=== PATIENT | female | born 1995 | race Caucasian/White ===

== ENCOUNTER 2016-09-21 02:10 | Emergency (ER) | payer MEDICAID ==
[2016-09-21 02:24] VITALS: BP 102/61
--- NOTE | 2016-09-21 02:39 | EDM.PDOC ---
ED HPI GENERAL MEDICAL PROBLEM - General Chief Complaint: General Stated Complaint: WEAK,HOT/COLD [id number] Time Seen by Provider: 09/21/16 02:30 Source of Information: Reports: Patient - History of Present Illness INITIAL COMMENTS - FREE TEXT/NARRATIVE: c/o being constipated, took laxative earlier and now has diarrhea and just doent feel well. No fever, felt chilled, no urinary sx. nauseated earlier gone now. 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: Other Medication(s) Generalized Pain Score (Numeric/FACES): 5 - Related Data Allergies Allergy/AdvReac Type Severity Reaction Status Date / Time amoxicillin [Amoxicillin] Allergy Rash Verified 09/21/16 02:14 Home Meds: Home Meds LORazepam [Ativan] 0.5 mg PO 06/21/13 [History] lamoTRIgine [Lamictal] 250 mg PO BID 06/21/13 [History] levETIRAcetam [Levetiracetam] 1,500 mg PO BID 06/21/13 [History] Melatonin 10 mg PO BEDTIME 09/19/13 [History] Divalproex Sodium [Depakote] 3 tab PO BID 09/21/16 [History] Zonisamide 1 tab PO DAILY 09/21/16 [History] Past Medical History Neurological History: Reports: Seizure Psychiatric History: Reports: Anxiety, Depression, Emotional Problems Social & Family History - Tobacco Use Smoking Status *Q: Unknown Ever Smoked - Caffeine Use Caffeine Use: Reports: None - Alcohol Use Days Per Week of Alcohol Use: 0 - Recreational Drug Use Recreational Drug Use: No ED ROS GENERAL - Review of Systems Review Of Systems: See Below Constitutional: Reports: Chills HEENT: Reports: No Symptoms Respiratory: Reports: No Symptoms Cardiovascular: Reports: No Symptoms GI/Abdominal: Reports: Constipation, Nausea (resolved) Musculoskeletal: Reports: No Symptoms Skin: Reports: No Symptoms Neurological: Reports: No Symptoms Psychiatric: Reports: Anxiety ED EXAM, GENERAL - Physical Exam Exam: See Below Exam Limited By: No Limitations General Appearance: Alert, No Apparent Distress, Anxious, Thin Eye Exam: Bilateral Eye: EOMI Ears: Normal External Exam Nose: Normal Inspection Throat/Mouth: Normal Inspection Head: Atraumatic, Normocephalic Neck: Normal Inspection, Full Range of Motion Respiratory/Chest: No Respiratory Distress, Lungs Clear, Normal Breath Sounds Cardiovascular: Normal Peripheral Pulses, Regular Rate, Rhythm GI/Abdominal: Normal Bowel Sounds, Soft, No Distention, No Mass. No: Distended , Guarding, Tender Back Exam: Normal Inspection Extremities: Normal Inspection Psychiatric: Anxious Skin Exam: Warm, Dry, Intact, Normal Color Course - Vital Signs Last Recorded V/S: Last Vital Signs Temp 96.2 F 09/21/16 02:23 Pulse 57 L 09/21/16 02:23 Resp 20 09/21/16 02:23 BP 102/61 09/21/16 02:23 Pulse Ox 97 09/21/16 02:23 Departure - Departure Time of Disposition: 03:35 Disposition: Home, Self-Care 01 Condition: good Clinical Impression: Anxiety about health - Discharge Information Instructions: Constipation, Adult Forms: ED Department Discharge Additional Instructions: miralax one capful daily in 8 ounces of liquid follow up as needed increase fruit, fiber and fluids in diet.
[2016-09-21 03:19] LABS: CHLORIDE,CL 105 mmol/L (101-111); SODIUM,NA 136 mmol/L (135-145)
== END 2016-09-21 03:31 | disposition home or self-care (01) ==
LOC: DL.ED 02:10
DX: F41.9 Anxiety disorder, unspecified (principal); F32.9 Major depressive disorder, single episode, unspecified; Z88.1 Allergy status to other antibiotic agents; Z79.899 Other long term (current) drug therapy
CPT/HCPCS: 36415; 74000; 80053; 85025; 99284

== ENCOUNTER 2017-09-30 00:51 | Emergency (ER) | payer MEDICAID ==
[2017-09-30] MEDS ORDERED: Azithromycin 250 MG Tab PO ONE (01:16)
--- NOTE | 2017-09-30 01:20 | EDM.PDOC ---
ED HPI GENERAL MEDICAL PROBLEM - General Chief Complaint: ENT Problem Stated Complaint: BAD EAR PAIN [id number] Time Seen by Provider: 09/30/17 01:17 Source of Information: Reports: Patient History Limitations: Reports: No Limitations - History of Present Illness INITIAL COMMENTS - FREE TEXT/NARRATIVE: onset 9pm took tylenol felt little better but still throbbing. Left Ear Pain Score (Numeric/FACES): 5 - Related Data Allergies Allergy/AdvReac Type Severity Reaction Status Date / Time amoxicillin [Amoxicillin] Allergy Rash Verified 09/30/17 00:58 Home Meds: Home Meds LORazepam [Ativan] 0.5 mg PO ASDIRECTED PRN 06/21/13 [History] lamoTRIgine [Lamictal] 250 mg PO BID 06/21/13 [History] levETIRAcetam [Levetiracetam] 1,500 mg PO BID 06/21/13 [History] Melatonin 10 mg PO BEDTIME 09/19/13 [History] Divalproex Sodium [Depakote] 3 tab PO BID 09/21/16 [History] Zonisamide 1 tab PO DAILY 09/21/16 [History] Past Medical History - Past Health History Medical/Surgical History: Denies Medical/Surgical History Neurological History: Reports: Seizure Psychiatric History: Reports: Anxiety, Depression, Emotional Problems Social & Family History - Tobacco Use Smoking Status *Q: Never Smoker Second Hand Smoke Exposure: No - Caffeine Use Caffeine Use: Reports: None - Recreational Drug Use Recreational Drug Use: No ED ROS ENT - Review of Systems Review Of Systems: ROS reveals no pertinent complaints other than HPI. ED EXAM, ENT - Physical Exam Exam: See Below Exam Limited By: No Limitations General Appearance: Alert, WD/WN, Mild Distress, Other (upset) Ears: TM Dullness, TM Erythema, Other (left) Mouth/Throat: Normal Inspection Head: Atraumatic Neck: Non-Tender, Full Range of Motion Respiratory/Chest: No Respiratory Distress Cardiovascular: Regular Rate, Rhythm GI/Abdominal: Soft, Non-Tender Neurological: Alert, Oriented, Normal Cognition, Normal Gait, No Motor/Sensory Deficits Psychiatric: Normal Affect, Normal Mood Skin: Warm, Dry, Normal Color Lymphatic: No Adenopathy Course - Vital Signs Last Recorded V/S: Last Vital Signs Temp 36.8 C 09/30/17 00:55 Pulse 97 09/30/17 00:55 Resp 18 09/30/17 00:55 BP Pulse Ox 98 09/30/17 00:55 - Orders/Labs/Meds Meds: Medications Discontinued Medications Generic Name Dose Route Start Last Admin Trade Name Leana PRN Reason Stop Dose Admin Azithromycin 500 mg 09/30/17 01:16 Zithromax PO 09/30/17 01:17 ONETIME ONE Departure - Departure Time of Disposition: 01:19 Disposition: Home, Self-Care 01 Condition: Good Clinical Impression: Otitis media Qualifiers: Otitis media type: suppurative Chronicity: acute Laterality: left Recurrence: not specified as recurrent Spontaneous tympanic membrane rupture: without spontaneous rupture Qualified Code(s): H66.002 - Acute suppurative otitis media without spontaneous rupture of ear drum, left ear - Discharge Information Instructions: Otitis Media, Adult, [id number] Additional Instructions: 1) avoid getting water into ear for a week 2) take tylenol as needed for pain 3) recheck as needed rx given; z-kalpana
== END 2017-09-30 01:23 | disposition home or self-care (01) ==
LOC: DL.ED 00:51
DX: H66.002 Acute suppurative otitis media without spontaneous rupture of ear drum, left ear (principal); Z88.1 Allergy status to other antibiotic agents; Z79.899 Other long term (current) drug therapy
CPT/HCPCS: 99282; A9270

== ENCOUNTER 2018-10-07 10:58 | Emergency (ER) | payer BC, MEDICAID ==
[2018-10-07 11:09] VITALS: BP 109/39
--- NOTE | 2018-10-07 11:10 | EDM.PDOC ---
ED HPI GENERAL MEDICAL PROBLEM - General Chief Complaint: Neurological Problem Stated Complaint: SEIZURE Time Seen by Provider: 10/07/18 11:08 Source of Information: Reports: Patient, Family, RN, RN Notes Reviewed History Limitations: Reports: No Limitations - History of Present Illness INITIAL COMMENTS - FREE TEXT/NARRATIVE: Pt presents to ER from home with c/o "seizure". Pt has known epilepsy and is on multiple anticonvulsant medications, but still has some seizures. Today pt forgot to take her medications. Mother witnessed the seizure, and states pt stiffened up and had mild generalized jerking which lasted less than one minute. The seizure was followed by approx. 20 mins. of postictal phase. Pt denies any injury. Onset: Today Duration: Recurring Location: Reports: Generalized Severity: Mild Improves with: Reports: None Worsens with: Reports: None Associated Symptoms: Reports: No Other Symptoms - Related Data Allergies Allergy/AdvReac Type Severity Reaction Status Date / Time amoxicillin [Amoxicillin] Allergy Rash Verified 09/30/17 00:58 Home Meds: Home Meds LORazepam [Ativan] 0.5 mg PO ASDIRECTED PRN 06/21/13 [History] lamoTRIgine [Lamictal] 250 mg PO BID 06/21/13 [History] levETIRAcetam [Levetiracetam] 1,500 mg PO BID 06/21/13 [History] Melatonin 10 mg PO BEDTIME 09/19/13 [History] Divalproex Sodium [Depakote] 3 tab PO BID 09/21/16 [History] Zonisamide 1 tab PO DAILY 09/21/16 [History] Past Medical History - Past Health History Medical/Surgical History: Denies Medical/Surgical History Neurological History: Reports: Seizure Psychiatric History: Reports: Anxiety, Depression, Emotional Problems Social & Family History - Family History Family Medical History: Noncontributory - Caffeine Use Caffeine Use: Reports: None - Living Situation & Occupation Living situation: Reports: with Family ED ROS GENERAL - Review of Systems Review Of Systems: ROS reveals no pertinent complaints other than HPI. - Physical Exam Exam: See Below Exam Limited By: No Limitations General Appearance: Alert, WD/WN, No Apparent Distress Eye Exam: Bilateral Eye: EOMI, Normal Inspection, PERRL Ears: Normal External Exam Nose: Normal Inspection Throat/Mouth: Normal Inspection, Normal Lips, Normal Teeth, Normal Gums, Normal Oropharynx, Normal Voice, No Airway Compromise. No: Evidence of Tongue Biting Head Exam: Atraumatic, Normocephalic Neck: Normal Inspection, Supple, Non-Tender, Full Range of Motion Respiratory/Chest: No Respiratory Distress, Lungs Clear, Normal Breath Sounds, No Accessory Muscle Use, Chest Non-Tender Cardiovascular: Normal Peripheral Pulses, Regular Rate, Rhythm, No Edema, No Gallop, No JVD, No Murmur, No Rub GI/Abdominal: Normal Bowel Sounds, Soft, Non-Tender Neuro Exam (Abbreviated): Alert, Oriented, CN II-XII Intact, Normal Cognition, Normal Gait, No Motor/Sensory Deficits Back Exam: Normal Inspection Extremities: Normal Inspection, Normal Range of Motion, Non-Tender, No Pedal Edema, Normal Capillary Refill Psychiatric: Normal Affect, Normal Mood Skin Exam: Warm, Dry, Intact, Normal Color, No Rash Course - Vital Signs Last Recorded V/S: Last Vital Signs Temp 37.2 C 10/07/18 11:07 Pulse 114 H 10/07/18 11:07 Resp 21 H 10/07/18 11:07 BP 109/39 L 10/07/18 11:07 Pulse Ox 97 10/07/18 11:07 - Orders/Labs/Meds Meds: Medications Discontinued Medications Generic Name Dose Route Start Last Admin Trade Name Leana PRN Reason Stop Dose Admin Diazepam 5 mg 10/07/18 11:37 Valium. PO 10/07/18 11:38 ONETIME ONE - Re-Assessments/Exams Free Text/Narrative Re-Assessment/Exam: 10/07/18 11:45 Pt declines any lab studies or any further evaluation. Her mother states she will take the pt home and ensure that she takes her medications. Departure - Departure Time of Disposition: 11:38 Disposition: Home, Self-Care 01 Condition: Good Clinical Impression: Seizure, History of epilepsy - Discharge Information *PRESCRIPTION DRUG MONITORING PROGRAM REVIEWED*: No *COPY OF PRESCRIPTION DRUG MONITORING REPORT IN PATIENT GERHARD: No Instructions: Epilepsy, [id number] Forms: ED Department Discharge Additional Instructions: Take your medications as prescribed as soon as you get home. Follow up with your neurologist this week. Return to ER if worse at any time.
[2018-10-07] MEDS ORDERED: Diazepam 5 MG Tab PO ONE (11:37)
== END 2018-10-07 12:00 | disposition home or self-care (01) ==
LOC: DL.ED 10:58
DX: G40.909 Epilepsy, unspecified, not intractable, without status epilepticus (principal); F41.9 Anxiety disorder, unspecified; F32.9 Major depressive disorder, single episode, unspecified; Z88.1 Allergy status to other antibiotic agents; Z79.899 Other long term (current) drug therapy
CPT/HCPCS: 99283; A9270

== ENCOUNTER 2019-06-18 04:23 | Emergency (ER) | payer BC, MEDICAID ==
[2019-06-18 04:49] VITALS: BP 113/64; PULSE 85
[2019-06-18] MEDS ORDERED: Acetaminophen 325 MG Tab PO ONE (04:59)
--- NOTE | 2019-06-18 05:13 | EDM.PDOC ---
ED HPI GENERAL MEDICAL PROBLEM - General Chief Complaint: ENT Problem Stated Complaint: EAR INFECTION, RIGHT EAR HURTS BAD. PAIN Time Seen by Provider: 06/18/19 04:50 Source of Information: Reports: Patient History Limitations: Reports: No Limitations - History of Present Illness INITIAL COMMENTS - FREE TEXT/NARRATIVE: This 23 yo female patient reports to the ED with right sided ear pain that woke her up at 0400 this morning. The patient reports she was seen at the [facility] on 05/28/19 for a sinus infection (started on Azithromycin) then returned to [facility] on 06/06/19 for a left otitis externa (started on Cipro/Dex). The patient reports she was feeling ok until this morning when her pain started. The patient currently rates her pain at a 10/10. Onset: Today Onset Date: 06/18/19 Onset Time: 04:00 Duration: Constant Location: Reports: Head Quality: Reports: Ache, Sharp, Stabbing Severity: Severe Improves with: Reports: None Worsens with: Reports: None Context: Reports: Other Right Ear Pain Score (Numeric/FACES): 10 - Related Data Allergies Allergy/AdvReac Type Severity Reaction Status Date / Time amoxicillin [Amoxicillin] Allergy Rash Verified 06/18/19 04:49 Home Meds: Home Meds LORazepam [Ativan] 0.5 mg PO ASDIRECTED PRN 06/21/13 [History] lamoTRIgine [Lamictal] 250 mg PO BID 06/21/13 [History] levETIRAcetam [Levetiracetam] 1,500 mg PO BID 06/21/13 [History] Melatonin 10 mg PO BEDTIME 09/19/13 [History] Divalproex Sodium [Depakote] 3 tab PO BID 09/21/16 [History] Zonisamide 1 tab PO DAILY 09/21/16 [History] Past Medical History - Past Health History Medical/Surgical History: Denies Medical/Surgical History Neurological History: Reports: Seizure Psychiatric History: Reports: Anxiety, Depression, Emotional Problems - Infectious Disease History Infectious Disease History: Reports: Chicken Pox - Past Surgical History HEENT Surgical History: Reports: Oral Surgery Social & Family History - Family History Family Medical History: Noncontributory - Tobacco Use Smoking Status *Q: Never Smoker Second Hand Smoke Exposure: No - Caffeine Use Caffeine Use: Reports: None - Recreational Drug Use Recreational Drug Use: No - Living Situation & Occupation Living situation: Reports: with Family ED ROS ENT - Review of Systems Review Of Systems: Comprehensive ROS is negative, except as noted in HPI. ED EXAM, ENT - Physical Exam Exam: See Below Exam Limited By: No Limitations General Appearance: Alert, WD/WN, Moderate Distress Eye Exam: Bilateral Eye: EOMI, Normal Inspection, PERRL Ears: Canal Swelling, TM Bulging, TM Erythema Nose: Normal Inspection, Normal Mucousa, No Blood Mouth/Throat: Normal Inspection, Normal Gums, Normal Lips, Normal Oropharynx, Normal Teeth Head: Atraumatic, Normocephalic Neck: Normal Inspection, Supple, Non-Tender, Full Range of Motion Respiratory/Chest: No Respiratory Distress, Lungs Clear, Normal Breath Sounds, No Accessory Muscle Use, Chest Non-Tender Cardiovascular: Normal Peripheral Pulses, Regular Rate, Rhythm, No Edema, No Gallop, No JVD, No Murmur, No Rub GI/Abdominal: Normal Bowel Sounds, Soft, Non-Tender, No Organomegaly, No Distention, No Abnormal Bruit, No Mass (Female) Exam: Deferred Rectal (Female) Exam: Deferred Back: Normal Inspection, Full Range of Motion Extremities: Normal Inspection, Normal Range of Motion, Non-Tender, No Pedal Edema, Normal Capillary Refill Neurological: Alert, Oriented, CN II-XII Intact, Normal Cognition, Normal Gait, Normal Reflexes, No Motor/Sensory Deficits Psychiatric: Normal Affect, Normal Mood Skin: Warm, Dry, Intact, Normal Color, No Rash Lymphatic: No Adenopathy Course - Vital Signs Last Recorded V/S: Last Vital Signs Temp 37.6 C 06/18/19 04:43 Pulse 85 06/18/19 04:43 Resp 18 06/18/19 04:43 BP 113/64 06/18/19 04:43 Pulse Ox 99 06/18/19 04:43 - Orders/Labs/Meds Meds: Medications Discontinued Medications Generic Name Dose Route Start Last Admin Trade Name Freq PRN Reason Stop Dose Admin Acetaminophen 650 mg 06/18/19 04:59 06/18/19 05:02 Tylenol PO 06/18/19 05:00 650 mg NOW ONE Administration Departure - Departure Time of Disposition: 05:10 Disposition: Home, Self-Care 01 Condition: Fair Clinical Impression: Right otitis media with effusion Right otitis externa Qualifiers: Otitis externa type: diffuse Chronicity: acute Qualified Code(s): H60.311 - Diffuse otitis externa, right ear - Discharge Information *PRESCRIPTION DRUG MONITORING PROGRAM REVIEWED*: Not Applicable *COPY OF PRESCRIPTION DRUG MONITORING REPORT IN PATIENT GERHARD: Not Applicable Instructions: Otitis Externa, [id number], Otitis Media, Adult, [id number] Referrals: PCP,Unobtain [Primary Care Provider] - Forms: ED Department Discharge Care Plan Goals: The patient and family were advised of the examination results during the visit. The patient was given a dose of Tylenol while in the ED. The patient was given a script for Omnicef (300 mg) #20 to take 1 by mouth 2 times per day for 10 days and Cipro/Dex to put 4 drops into the affected ear 2 times per day for 7 days. The patient may be given Tylenol or ibuprofen as directed for temporary symptom relief. If the patient has any additional symptoms or concerns, the patient should visit her primary care facility or return to the emergency department. Sepsis Event Note - Evaluation Sepsis Screening Result: No Definite Risk - Focused Exam Vital Signs: Vital Signs Temp Pulse Resp BP Pulse Ox 06/18/19 04:43 37.6 C 85 18 113/64 99 Date Exam was Performed: 06/18/19 Time Exam was Performed: 05:36
== END 2019-06-18 05:17 | disposition home or self-care (01) ==
LOC: DL.ED 04:23
DX: H60.311 Diffuse otitis externa, right ear (principal); H65.91 Unspecified nonsuppurative otitis media, right ear; F41.9 Anxiety disorder, unspecified; F32.9 Major depressive disorder, single episode, unspecified; Z88.1 Allergy status to other antibiotic agents; Z79.899 Other long term (current) drug therapy
CPT/HCPCS: 99282; A9270

== ENCOUNTER 2019-11-18 18:07 | Emergency (ER) | payer BC, MEDICAID ==
[2019-11-18 18:18] VITALS: BP 113/72; PULSE 106
--- NOTE | 2019-11-18 18:34 | EDM.PDOC ---
<Prashant Chapa - Last Filed: 11/18/19 18:29> ED HPI GENERAL MEDICAL PROBLEM - General Chief Complaint: ENT Problem Stated Complaint: RIGHT SIDE AND TOUNGE SWOLLEN UNDER JAW Time Seen by Provider: 11/18/19 18:29 Source of Information: Reports: Patient, RN, RN Notes Reviewed - History of Present Illness INITIAL COMMENTS - FREE TEXT/NARRATIVE: Patient had a tongue piercing placed yesterday. She is now having 10/10, ache, constant pain in the right side of her tongue and right submandibular area of her anterior neck. This is associated with difficulty speaking and eating. She denies fever, chills, muscle weakness in her tongue, loss of taste. - Related Data Allergies Allergy/AdvReac Type Severity Reaction Status Date / Time amoxicillin [Amoxicillin] Allergy Rash Verified 11/18/19 18:35 Home Meds: Home Meds LORazepam [Ativan] 0.5 mg PO ASDIRECTED PRN 06/21/13 [History] lamoTRIgine [Lamictal] 250 mg PO BID 06/21/13 [History] levETIRAcetam [Levetiracetam] 1,500 mg PO BID 06/21/13 [History] Melatonin 10 mg PO BEDTIME 09/19/13 [History] Divalproex Sodium [Depakote] 3 tab PO BID 09/21/16 [History] Zonisamide 1 tab PO DAILY 09/21/16 [History] Past Medical History - Past Health History Medical/Surgical History: Denies Medical/Surgical History HEENT History: Reports: Other (See Below) Other HEENT History: Recently had her tongue pierced Painful Neurological History: Reports: Seizure Psychiatric History: Reports: Anxiety, Depression, Emotional Problems - Infectious Disease History Infectious Disease History: Reports: Chicken Pox - Past Surgical History HEENT Surgical History: Reports: Oral Surgery Social & Family History - Family History Family Medical History: Noncontributory - Tobacco Use Smoking Status *Q: Never Smoker Second Hand Smoke Exposure: No - Caffeine Use Caffeine Use: Reports: Soda - Recreational Drug Use Recreational Drug Use: No - Living Situation & Occupation Living situation: Reports: with Family ED ROS ENT - Review of Systems Review Of Systems: Comprehensive ROS is negative, except as noted in HPI. ED EXAM, ENT - Physical Exam Exam: See Below Exam Limited By: No Limitations General Appearance: Alert, WD/WN, Mild Distress Ears: Normal External Exam, Hearing Grossly Normal Nose: Normal Inspection, No Blood Mouth/Throat: Normal Inspection, Normal Gums, Tongue Swelling, Other (Tongue stud seen. Affecting speaking.) Head: Atraumatic, Normocephalic Neck: Normal Inspection, Other (Tenderness to palpation on right submandibular area of right anterior neck.) Respiratory/Chest: No Respiratory Distress, Lungs Clear, Normal Breath Sounds Cardiovascular: Normal Peripheral Pulses, Regular Rate, Rhythm Extremities: Normal Inspection, Normal Range of Motion, Non-Tender Neurological: Alert, Oriented, No Motor/Sensory Deficits Skin: Warm, Dry Departure - Departure Time of Disposition: 18:38 Disposition: Home, Self-Care 01 Condition: Fair Clinical Impression: Foreign body (FB) in soft tissue - Discharge Information *PRESCRIPTION DRUG MONITORING PROGRAM REVIEWED*: No *COPY OF PRESCRIPTION DRUG MONITORING REPORT IN PATIENT GERHARD: No Instructions: Eye Foreign Body, [id number] Forms: ED Department Discharge Additional Instructions: Your tongue should heal on its own. You have been prescribed Clindamycin 300mg to be taken four times daily for 10 days. If symptoms worsen or you develop a fever, you should be re-evaluated by your primary care facility or at the emergency room. Sepsis Event Note (ED) - Evaluation Sepsis Screening Result: No Definite Risk <eBn [place] - Last Filed: 11/19/19 07:04> Course - Vital Signs Last Recorded V/S: Last Vital Signs Temp 36.8 C 11/18/19 18:15 Pulse 106 H 11/18/19 18:15 Resp 20 11/18/19 18:15 BP 113/72 11/18/19 18:15 Pulse Ox 100 11/18/19 18:15 - Orders/Labs/Meds Meds: Medications Discontinued Medications Generic Name Dose Route Start Last Admin Trade Name Freq PRN Reason Stop Dose Admin Clindamycin HCl 300 mg 11/18/19 18:37 11/18/19 18:53 Cleocin PO 11/18/19 18:38 300 mg ONETIME ONE Administration - Re-Assessments/Exams Free Text/Narrative Re-Assessment/Exam: 11/19/19 07:03 I have examined the patient. I have discussed findings and treatment plan with the resident. I agree with the assessment and plan in the following residents note.
[2019-11-18] MEDS ORDERED: Clindamycin HCl 150 MG Cap PO ONE (18:37)
== END 2019-11-18 18:56 | disposition home or self-care (01) ==
LOC: DL.ED 18:07
DX: S00.552A Superficial foreign body of oral cavity, initial encounter (principal); F41.9 Anxiety disorder, unspecified; F32.9 Major depressive disorder, single episode, unspecified; R56.9 Unspecified convulsions; Z79.899 Other long term (current) drug therapy; Z88.1 Allergy status to other antibiotic agents; X58.XXXA Exposure to other specified factors, initial encounter
CPT/HCPCS: 99282; A9270; 99283

== ENCOUNTER 2019-11-24 06:35 | Emergency (ER) | payer MEDICAID ==
[2019-11-24 06:45] VITALS: BP 101/60; PULSE 98
[2019-11-24] MEDS ORDERED: Sodium Chloride 0.9% 1,000 ML IV ONE (07:20)
--- NOTE | 2019-11-24 07:44 | EDM.PDOC ---
ED HPI GENERAL MEDICAL PROBLEM - General Chief Complaint: Gastrointestinal Problem Stated Complaint: shakey,weak,nausea,headach Time Seen by Provider: 11/24/19 07:30 - History of Present Illness INITIAL COMMENTS - FREE TEXT/NARRATIVE: Presents to the ER with weakness post night of alcohol ingestion; claimed to of had 4 vodka type alcohol drinks. "Not use to drinking much". Hx of epilepsy and stable on meds. Vomited last night and this am. Mild MAI. Headache Pain Score (Numeric/FACES): 4 - Related Data Allergies Allergy/AdvReac Type Severity Reaction Status Date / Time amoxicillin [Amoxicillin] Allergy Rash Verified 11/24/19 06:52 Home Meds: Home Meds LORazepam [Ativan] 0.5 mg PO ASDIRECTED PRN 06/21/13 [History] lamoTRIgine [Lamictal] 250 mg PO BID 06/21/13 [History] levETIRAcetam [Levetiracetam] 1,500 mg PO BID 06/21/13 [History] Melatonin 10 mg PO BEDTIME 09/19/13 [History] Divalproex Sodium [Depakote] 3 tab PO BID 09/21/16 [History] Zonisamide 1 tab PO DAILY 09/21/16 [History] Escitalopram [Lexapro] 10 mg PO DAILY 11/24/19 [History] Past Medical History - Past Health History Medical/Surgical History: Denies Medical/Surgical History HEENT History: Reports: Other (See Below) Other HEENT History: Recently had her tongue pierced Painful Neurological History: Reports: Seizure Psychiatric History: Reports: Anxiety, Depression, Emotional Problems - Infectious Disease History Infectious Disease History: Reports: Chicken Pox - Past Surgical History HEENT Surgical History: Reports: Oral Surgery Social & Family History - Family History Family Medical History: Noncontributory - Tobacco Use Smoking Status *Q: Never Smoker Second Hand Smoke Exposure: No - Caffeine Use Caffeine Use: Reports: None - Recreational Drug Use Recreational Drug Use: No - Living Situation & Occupation Living situation: Reports: with Family ED ROS GENERAL - Review of Systems Review Of Systems: Comprehensive ROS is negative, except as noted in HPI. ED EXAM, GENERAL - Physical Exam Exam: See Below General Appearance: Alert Nose: Normal Inspection Throat/Mouth: Normal Inspection, Normal Lips Head: Atraumatic, Normocephalic Neck: Normal Inspection Respiratory/Chest: No Respiratory Distress, Lungs Clear Cardiovascular: Normal Peripheral Pulses, Regular Rate, Rhythm GI/Abdominal: Normal Bowel Sounds, Soft, Non-Tender, No Organomegaly Extremities: Normal Inspection, Normal Range of Motion Neurological: Alert, Oriented, Normal Cognition Psychiatric: Normal Affect, Normal Mood Skin Exam: Warm, Dry, Intact, Normal Color, No Rash Course - Vital Signs Text/Narrative:: Received 1 L NS, felt improved and lowered HR 88. Discharged with instruction; encouraged to drink fluids through the day and eat light easy to digest foods. Return if concerns. Last Recorded V/S: Last Vital Signs Temp 96.7 F L 11/24/19 06:43 Pulse 98 11/24/19 06:43 Resp 16 11/24/19 06:43 BP 101/60 11/24/19 06:43 Pulse Ox 100 11/24/19 06:43 - Orders/Labs/Meds Meds: Medications Discontinued Medications Generic Name Dose Route Start Last Admin Trade Name Freq PRN Reason Stop Dose Admin Sodium Chloride 1,000 mls @ 999 mls/hr 11/24/19 07:20 11/24/19 08:47 Normal Saline IV 11/24/19 08:20 Infused .BOLUS ONE Infusion Departure - Departure Time of Disposition: 08:35 Disposition: Home, Self-Care 01 Preliminary Cause of *Q: Cardiac Arrest Clinical Impression: Dehydration - Discharge Information Instructions: Dehydration, Adult, [id number] Sepsis Event Note (ED) - Evaluation Sepsis Screening Result: No Definite Risk - Focused Exam Vital Signs: Vital Signs Temp Pulse Resp BP Pulse Ox 11/24/19 06:43 96.7 F L 98 16 101/60 100
== END 2019-11-24 08:54 | disposition home or self-care (01) ==
LOC: DL.ED 06:35
DX: E86.0 Dehydration (principal); R56.9 Unspecified convulsions; F41.9 Anxiety disorder, unspecified; F32.9 Major depressive disorder, single episode, unspecified; Z88.1 Allergy status to other antibiotic agents; Z79.899 Other long term (current) drug therapy
CPT/HCPCS: 96360; 99283; J7030; 99282

== ENCOUNTER 2023-10-19 07:24 | Emergency (ER) | payer MEDICAID ==
[2023-10-19 07:44] VITALS: BP 136/81; PULSE 81
[2023-10-19] MEDS: Ondansetron 4 MG/2 ML SDV IV ONE (07:51)
[2023-10-19] MEDS: Sodium Chloride 0.9% 1,000 ML IV ONE ×2 (07:51→08:38)
[2023-10-19] MEDS: Sodium Chloride 0.9% 10 ML Syringe FLUSH PRN (07:51)
[2023-10-19 07:59] LABS: BASOPHILS PERCENT AUTO 0.6 % (0.0-1.0); EOSINOPHILS PERCENT AUTO 1.8 % (1.0-3.0); HEMATOCRIT 34.7 % (37.0-47.0); HEMOGLOBIN 10.8 g/dL (12.0-16.0); LYMPHOCYTES PERCENT AUTO 24.6 % (20.5-50.1); MEAN CORPUSCULAR HEMOGLOBIN 26.1 pg (27.0-34.0); MEAN CORPUSCULAR HGB CONC 31.1 g/dL (33.0-35.0); MEAN CORPUSCULAR VOLUME 83.8 fL (80-100); MONOCYTES PERCENT AUTO 7.8 % (2-8); NEUTROPHILS PERCENT AUTO 65.2 % (42.2-75.2); PLATELET COUNT,PLT 444 10^3/uL (150-450); RED BLOOD CELL COUNT 4.14 10^6/uL (4.2-5.4); WHITE BLOOD CELL COUNT,WBC 8.3 10^3/uL (5.0-10.0)
[2023-10-19 08:21] LABS: LACTIC ACID 0.9 mmol/L (0.4-2.0)
[2023-10-19 08:27] LABS: A/G RATIO 0.9; ALBUMIN 3.5 g/dL (3.4-5.0); ANION GAP 15.7 mEq/L (7-13); BILIRUBIN TOTAL 0.3 mg/dL (0.2-1.0); BUN/CREATININE RATIO 16.3 (No establ ref range); CALCIUM 8.9 mg/dL (8.5-10.1); CREATININE 0.86 mg/dL (0.55-1.02); EST CRCL DRUG DOSING (CG) 91.17 mL/min; POTASSIUM,K 3.7 mmol/L (3.5-5.1); PROTEIN TOTAL,TP 7.4 g/dL (6.4-8.2)
[2023-10-19 08:48] LABS: APPEARANCE,URINE CLEAR (CLEAR); BILIRUBIN,URINE NEGATIVE (NEGATIVE); COLOR,URINE YELLOW (YELLOW); GLUCOSE,URINE NEGATIVE (NEGATIVE); KETONES,URINE 15 (NEGATIVE); LEUKOCYTE ESTERASE,URINE TRACE (NEGATIVE); NITRITE,URINE NEGATIVE (NEGATIVE); OCCULT BLOOD,URINE SMALL (NEGATIVE); PROTEIN,URINE NEGATIVE (NEGATIVE); UROBILINOGEN,URINE 0.2 mg/dL (0.2-1.0)
[2023-10-19 08:59] LABS: BACTERIA,URINE RARE /HPF (0-FEW/HPF); EPITHELIAL CELLS,URINE FEW /HPF (NOT SEEN); MUCUS,URINE FEW /LPF (NOT SEEN); RBC,URINE 0-5 /HPF (0-5); WBC,URINE 0-5 /HPF (0-5/HPF)
[2023-10-19] MEDS: Iopamidol 612 MG/ML 100 ML Bottle IVPUSH ONE (09:12)
== END 2023-10-19 10:47 | disposition home or self-care (01) ==
LOC: DL.ED 07:24
DX: N85.8 Other specified noninflammatory disorders of uterus (principal); Z79.899 Other long term (current) drug therapy; Z88.0 Allergy status to penicillin
CPT/HCPCS: 36415; 74177; 80053; 81001; 81025; 83605; 84702; 85025; 87086; 96361; 96374; 99284; J2405; J7030; Q9967; J3490

== ENCOUNTER 2023-11-06 04:17 | Emergency (ER) | payer MEDICAID ==
[2023-11-06 05:11] VITALS: BP 120/73; PULSE 82
[2023-11-06] MEDS: Ondansetron 4 MG Tab.DIS PO ONE (05:13)
[2023-11-06] MEDS: Ketorolac 30 MG/ML SDV IM ONE (05:13)
== END 2023-11-06 07:30 | disposition home or self-care (01) ==
LOC: DL.ED 04:17
DX: J01.00 Acute maxillary sinusitis, unspecified (principal); D25.9 Leiomyoma of uterus, unspecified; M54.50 Low back pain, unspecified; Z79.899 Other long term (current) drug therapy; Z88.0 Allergy status to penicillin
CPT/HCPCS: 96372; 99283; A9270; J1885

== ENCOUNTER 2024-06-01 23:12 | Emergency (ER) | payer MEDICAID ==
[2024-06-01] MEDS: Ibuprofen 800 MG Tab PO ONE (23:44)
[2024-06-01] MEDS: Acetaminophen 500 MG Tab PO ONE (23:44)
[2024-06-02 00:15] VITALS: BP 103/93; PULSE 82
== END 2024-06-02 01:11 | disposition home or self-care (01) ==
LOC: DL.ED 23:12
DX: M94.0 Chondrocostal junction syndrome [Tietze] (principal); G40.909 Epilepsy, unspecified, not intractable, without status epilepticus; Z79.899 Other long term (current) drug therapy; Z88.0 Allergy status to penicillin
CPT/HCPCS: 71046; 93005; 99285; A9270; 93010; 99284

== ENCOUNTER 2024-07-27 11:21 | Emergency (ER) | payer MEDICAID ==
[2024-07-27 11:32] VITALS: BP 133/78; PULSE 84
== END 2024-07-27 11:59 | disposition home or self-care (01) ==
LOC: DL.ED 11:21
DX: G43.909 Migraine, unspecified, not intractable, without status migrainosus (principal); Z79.899 Other long term (current) drug therapy; Z88.0 Allergy status to penicillin
CPT/HCPCS: 99283